=== PATIENT | female | born 1945 | race Caucasian/White ===

== ENCOUNTER → 2018-08-25 12:52 | Outpatient (CLI) | payer MEDICARE, OTHER, SELFPAY ==
--- NOTE | 2018-08-25 | DI.RAD.S_ITS ---
This blank DEXA report has been sent in error by the PACS system. The correct and complete report will be forthcoming in 1-2 days. Thank you for your patience and understanding. Dictated by: Abdi Stahl M.D. on 08/25/2018 at 14:18 Approved by: Abdi Stahl M.D. on 08/25/2018 at 14:18
== END ==
PROVIDERS: PCP Family Medicine; Visit Provider Family Medicine
DX: M85.851 Other specified disorders of bone density and structure, right thigh (principal); Z78.0 Asymptomatic menopausal state; E07.9 Disorder of thyroid, unspecified
CPT/HCPCS: 77080

== ENCOUNTER → 2021-01-18 13:23 | Outpatient (CLI) | payer MEDICARE, OTHER, SELFPAY | PROVIDERS: PCP Student in an Organized Health Care Education/Training Program; Referring Provider Student in an Organized Health Care Education/Training Program; Visit Provider Student in an Organized Health Care Education/Training Program | DX: Z78.0 Asymptomatic menopausal state (principal) | CPT/HCPCS: 77080 ==

== ENCOUNTER 2021-04-08 09:36 | Inpatient (IN) | payer MEDICARE, OTHER, SELFPAY ==
[2021-04-08] VITALS (36 sets, daily range): BP systolic 98–144; BP diastolic 53–91; PULSE 75–291; RESP 18–35; TEMP 36.1–37.2; O2SAT 65–97; BMI 37.3
--- NOTE | 2021-04-08 10:16 | DI.RAD.S_ITS ---
PROCEDURE: XR CHEST 1V INDICATIONS: shortness of breath TECHNIQUE: One view of the chest was acquired. COMPARISON: [facility] - [place], CR, CHEST 2VW, 03/31/2010, 9:35. FINDINGS: Surgical changes and devices: None. Lungs and pleura: Multifocal interstitial type infiltrates are seen. Low lung volumes are noted. This causes a crowded appearance to the lung markings and limits evaluation. No pleural effusions or pneumothorax. Mediastinum: The aorta is prominent and tortuous. Heart size is mildly to moderately enlarged. Bones and chest wall: No suspicious bony lesions. Age-appropriate bony degenerative changes are seen. Overlying soft tissues appear unremarkable. IMPRESSION: Multifocal interstitial type infiltrates are seen. There is strong suspicion for COVID pneumonia. Please correlate with patient history and laboratory results. However, differential diagnosis would include pulmonary edema with CHF in this patient with [id number] cardiomegaly. Dictated by: Paco Cha M.D. on 04/08/2021 at 10:21 Approved by: Paco Cha M.D. on 04/08/2021 at 10:22
--- NOTE | 2021-04-08 10:25 | ED_ITS ---
HPI - SOB/Dyspnea General Chief Complaint: Upper Respiratory Symptoms Stated Complaint: POSSIBLE COVID,HAVING SYMPTOMS Time Seen by Provider: 04/08/21 10:19 Source: patient Mode of arrival: Wheelchair Limitations: no limitations History of Present Illness HPI Narrative: This is a 75-year-old female who is brought in for COVID symptoms. Patient has had symptoms for a week. She has felt generally unwell. She had 1 fever. She has had some nasal congestion and she has had shortness of breath particularly with cough but also significantly with exertion. Patient denies any chest pain. She denies any nausea or vomiting. No diarrhea constipation. No swelling in her extremities. Patient is not vaccinated. 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 Patient is on medication for blood pressure, levothyroxine and uses inhalers. She denies any allergies to medications. Related Data Home Medications Medication Instructions Recorded Confirmed Alendronate Sodium (FOSAMAX) 70 mg PO Q7D #0 06/10/08 Atorvastatin Calcium (Lipitor) 40 mg PO Q DAY #0 06/10/08 CALCIUM CARBONATE/VITAMIN D3 600 mg PO #0 06/10/08 (Oyster Shell Calcium-Vit D Tab) Cyclobenzaprine Hydrochloride 10 mg PO PRN #0 06/10/08 (CYCLOBENZAPRINE HCL) ESTRADIOL (Estrace) 1 mg PO #0 06/10/08 FELODIPINE (Felodipine ER) 5 mg PO Q DAY #0 06/10/08 FLUTICASONE 50MCG RAY INH- 1 spray INTRANASAL #0 06/10/08 (FLUTICASONE PROPIONATE) HYDROXYZINE PAMOATE (Vistaril) 25 mg PO PRN #0 06/10/08 IPRATROPIUM/ALBUTEROL SULFATE 2 puff INH #0 06/10/08 (Combivent Inhaler) LEVOFLOXACIN (Levaquin) 500 mg PO DAILY UNTIL GONE #0 06/10/08 LEVOTHYROXINE SODIUM (Synthroid) 112 mcg PO Q DAY #0 06/10/08 [FLOXIN] #0 06/10/08 Review of Systems Review of Systems ROS Unobtainable: All systems reviewed & are unremarkable except as noted in HPI and below Patient History Medical History (Updated 04/08/21 @ 10:57 by Sabi Roberts DO) Hypertension Social History Smoking Status: Never smoker Smoking Status: Never smoker alcohol intake frequency: holidays/special occasions only Substance Use Type: does not use Exam Narrative Exam Narrative: GENERAL: Alert and oriented x three, elderly female in moderate distress. HEENT: Head normocephalic, atraumatic, EOMI, pupils reactive, face symmetric, moist mucous membranes NECK: Supple, full range of motion CARDIOVASCULAR: Regular rate and rhythm without murmurs, rubs or gallops. RESPIRATORY: Breath sounds equal bilaterally, no wheezes rales or rhonchi. Positive for tachypnea. No accessory muscle use. Speaks in 5-6 word sentences. ABDOMEN: Soft, nontender. Normoactive bowel sounds all 4 quadrants. No guarding or rebound, rigidity, no mass : No CVA tenderness EXTREMITIES: Normal range of motion, no clubbing or edema bilateral lower extremities. Neurovascularly intact NEUROLOGICAL: Cranial nerves II through XII grossly intact. Moving all extremities SKIN: Warm, dry, no petechiae, no rashes or lesions. Initial Vital Signs Initial Vital Signs: Vital Signs Temperature 98.9 F 04/08/21 09:40 Pulse Rate 93 H 04/08/21 09:40 Respiratory Rate 26 H 04/08/21 09:40 Blood Pressure 130/69 04/08/21 09:40 Pulse Oximetry 83 L 04/08/21 09:40 Course Orders Ordered: ED Orders 04/08/21 10:30 Blood Culture Stat C-Reactive Protein Quant Stat Complete Blood Count AUTO DIFF Stat Comprehensive Metabolic Panel Stat Ferritin Stat Lactate (Lactic Acid) Stat Lactate Dehydrogenase Stat NT-proBNP (BNP-Adult 18+) Stat Procalcitonin Stat Troponin & CK Cardiac Panel Stat 04/08/21 10:35 COVID19 - ADMIT (FEATHER EDGER swab/PCR) Routine 04/08/21 11:10 High flow/High humidity nasal STAT 04/08/21 11:35 D Dimer Stat 04/08/21 11:43 ABG [Arterial Blood Gas] Stat Acetaminophen (Acetaminophen 325 Mg Tablet) 650 mg PO Q6HR PRN PRN Reason: Fever Last Admin: 04/08/21 15:48 Dose: 650 mg Documented by: CWHITE Albuterol/Ipratropium (Albuterol/Ipratropium 3 Ml Ampul) 3 ml INH [id number] [facility] Atorvastatin Calcium (Atorvastatin 20 Mg Tablet) 40 mg PO DAILY [facility] Last Admin: 04/08/21 15:47 Dose: 40 mg Documented by: NAZARIO Cyclobenzaprine HCl (Cyclobenzaprine 10 Mg Tablet) 10 mg PO DAILY PRN PRN Reason: muscle spasms Last Admin: 04/08/21 15:48 Dose: 10 mg Documented by: NAZARIO Dexamethasone (Dexamethasone 10 Mg/Ml Vial) 6 mg IV DAILY [facility] Docusate Sodium (Docusate 100 Mg Capsule) 100 mg PO BID PRN PRN Reason: constipation Last Admin: 04/08/21 15:48 Dose: 100 mg Documented by: NAZARIO Enoxaparin Sodium (Enoxaparin 30 Mg/0.3 Ml Syringe) 30 mg SUBCUT DAILY [facility] Last Admin: 04/08/21 15:50 Dose: 30 mg Documented by: NAZARIO Sodium Chloride (Normal Saline 0.9%) 1,000 mls @ 125 mls/hr IV CONT [facility] Last Infusion: 04/08/21 14:00 Dose: 0 mls/hr Documented by: Admin: 04/08/21 10:40 Dose: 125 mls/hr Documented by: MARICHUY Potassium Chloride 10 meq/ (Dextrose/Sodium Chloride) 1,005 mls @ 0 mls/hr IV CONT [facility] Last Admin: 04/08/21 15:46 Dose: 75 mls/hr Documented by: NAZARIO Cosigned by: SALINAS Ceftriaxone Sodium 2,000 mg/ (Sodium Chloride) 100 mls @ 200 mls/hr IV Q24H [facility] Azithromycin 500 mg/ Dextrose 250 mls @ 250 mls/hr IV Q24H [facility] Remdesivir 100 mg/ Sodium (Chloride) 250 mls @ 250 mls/hr IV DAILY [facility] Stop: 04/16/21 15:58 Levothyroxine Sodium (Levothyroxine 137 Mcg Tablet) 137 mcg PO 0600 [facility] Naloxone HCl (Naloxone 0.4 Mg/Ml Vial) 0.2 mg IV Q2MIN PRN PRN Reason: Opiate Reversal Felodipine Er 5 Mg 5 mg PO DAILY [facility] Last Admin: 04/08/21 15:47 Dose: Not Given Documented by: NAZARIO Discontinued Medications Dexamethasone (Dexamethasone 10 Mg/Ml Vial) 6 mg IV NOW ONE Stop: 04/08/21 10:48 Last Admin: 04/08/21 11:30 Dose: 6 mg Documented by: MARICHUY Remdesivir 200 mg/ Sodium (Chloride) 250 mls @ 250 mls/hr IV NOW ONE Stop: 04/08/21 10:48 Last Infusion: 04/08/21 12:32 Dose: 0 mls/hr Documented by: Admin: 04/08/21 11:29 Dose: 250 mls/hr Documented by: MARICHUY Ceftriaxone Sodium 2,000 mg/ (Sodium Chloride) 100 mls @ 200 mls/hr IV NOW ONE Stop: 04/08/21 12:07 Last Infusion: 04/08/21 13:06 Dose: 0 mls/hr Documented by: Admin: 04/08/21 12:26 Dose: 200 mls/hr Documented by: MARICHUY Azithromycin 500 mg/ Dextrose 250 mls @ 250 mls/hr IV NOW ONE Stop: 04/08/21 12:08 Last Infusion: 04/08/21 14:43 Dose: 0 mls/hr Documented by: Admin: 04/08/21 13:06 Dose: 250 mls/hr Documented by: MARICHUY Tocilizumab (Tocilizumab 200 Mg/10 Ml Vial) 664 mg IV NOW ONE Stop: 04/08/21 14:26 Consultations Consultation #1: Dr. Shaver, accepts for admission. Patient current POLST status relayed. Patient was covered with antibiotics secondary to elevated procalcitonin although patient is very classically COVID positive pneumonia. Currently on high-flow oxygen. Vital Signs Vital signs: Vital Signs - 8 hr 04/08/21 11:30 04/08/21 11:31 04/08/21 12:00 Pulse Rate 80 80 86 Respiratory Rate 24 Blood Pressure 132/63 124/58 L Pulse Oximetry 88 L 92 04/08/21 12:30 Pulse Rate 84 Respiratory Rate Blood Pressure 125/60 Pulse Oximetry 93 MDM - SOB/Dyspnea Lab Data Result diagrams: 04/08/21 10:30 04/08/21 10:30 Labs: Lab Results 04/08/21 04/08/21 04/08/21 Range/Units 10:02 10:30 10:30 WBC 12.9 H (4.5-11.0) X10^3/uL RBC 4.38 (4.0-5.2) X10^6/uL Hgb 12.9 (12.0-16.0) g/dL Hct 37.8 (36-46) % MCV 86.3 (80-100) fL MCH 29.6 (26-34) PG MCHC 34.2 (30-36) % RDW 13.9 (11.6-14.8) % Plt Count 251 (150-400) X10^3/uL Neut % (Auto) 82.8 H (50-75) % Lymph % (Auto) 10.0 L (25-40) % [place] % (Auto) 6.8 (3-14) % Eos % (Auto) 0.0 L (2-4) % Baso % (Auto) 0.4 (0-2) % Neut # (Auto) 39778 H (5019-7597) /uL Lymph # (Auto) 1300 (6632-0129) /uL [place] # (Auto) 900 (0-900) /uL Eos # (Auto) 0 (0-450) /uL Baso # (Auto) 100 (0-100) /uL D-Dimer (<230) ng/mL ABG pH (7.35-7.45) ABG pCO2 (35-45) mmHg ABG pO2 (80-100) mmHg ABG HCO3 (22-26) mmol/L ABG Total CO2 (21-31) mmol/L ABG O2 Saturation (95-100) % ABG Base Excess (-2-2) mmol/L FiO2 Sodium 132 L (137-145) mmol/L Potassium 3.6 (3.4-5.1) mmol/L Chloride 100 (98-107) mmol/L Carbon Dioxide 22 (22-32) mmol/L BUN 19 H (7-17) mg/dL Creatinine 0.93 (0.52-1.04) mg/dL Estimated GFR 58.5 L (>60) mL/min BUN/Creatinine Ratio 20.4 (6-22) Glucose 168 H (80-110) mg/dL Lactate (0.7-2.1) mmol/L Calcium 8.7 (8.4-10.2) mg/dL Ferritin (11-264) ng/mL Total Bilirubin 0.9 (0.2-1.3) mg/dL AST 58 H (14-36) IU/L ALT 27 (<35) IU/L Alkaline Phosphatase 96 (38-126) U/L Lactate Dehydrogenase (313-618) U/L Total Creatine Kinase (30-135) U/L CK-MB (CK-2) CK-MB (CK-2) Rel Index Troponin I (0.01-0.034) ng/mL C-Reactive Protein (<1.0) mg/dL NT-Pro-B Natriuret Pep (<450) pg/mL Total Protein 7.4 (6.3-8.2) g/dL Albumin 3.7 (3.5-5.0) g/dL Globulin 3.7 (1.7-4.1) g/dL Albumin/Globulin Ratio 1.0 (1.0-2.8) Procalcitonin (<0.5) ng/mL SARS-CoV-2 (PCR) Positive H (Negative) Influenza A (RT-PCR) (NEGATIVE) Influenza B (RT-PCR) (NEGATIVE) 04/08/21 04/08/21 04/08/21 Range/Units 10:30 10:30 10:30 WBC (4.5-11.0) X10^3/uL RBC (4.0-5.2) X10^6/uL Hgb (12.0-16.0) g/dL Hct (36-46) % MCV (80-100) fL MCH (26-34) PG MCHC (30-36) % RDW (11.6-14.8) % Plt Count (150-400) X10^3/uL Neut % (Auto) (50-75) % Lymph % (Auto) (25-40) % Apache % (Auto) (3-14) % Eos % (Auto) (2-4) % Baso % (Auto) (0-2) % Neut # (Auto) (9592-2915) /uL Lymph # (Auto) (8062-9354) /uL Apache # (Auto) (0-900) /uL Eos # (Auto) (0-450) /uL Baso # (Auto) (0-100) /uL D-Dimer (<230) ng/mL ABG pH (7.35-7.45) ABG pCO2 (35-45) mmHg ABG pO2 (80-100) mmHg ABG HCO3 (22-26) mmol/L ABG Total CO2 (21-31) mmol/L ABG O2 Saturation (95-100) % ABG Base Excess (-2-2) mmol/L FiO2 Sodium (137-145) mmol/L Potassium (3.4-5.1) mmol/L Chloride (98-107) mmol/L Carbon Dioxide (22-32) mmol/L BUN (7-17) mg/dL Creatinine (0.52-1.04) mg/dL Estimated GFR (>60) mL/min BUN/Creatinine Ratio (6-22) Glucose (80-110) mg/dL Lactate 1.4 (0.7-2.1) mmol/L Calcium (8.4-10.2) mg/dL Ferritin 885 H (11-264) ng/mL Total Bilirubin (0.2-1.3) mg/dL AST (14-36) IU/L ALT (<35) IU/L Alkaline Phosphatase (38-126) U/L Lactate Dehydrogenase 1079 H (313-618) U/L Total Creatine Kinase 67 (30-135) U/L CK-MB (CK-2) TNP CK-MB (CK-2) Rel Index TNP Troponin I < 0.012 (0.01-0.034) ng/mL C-Reactive Protein 22.6 H (<1.0) mg/dL NT-Pro-B Natriuret Pep 513 H (<450) pg/mL Total Protein (6.3-8.2) g/dL Albumin (3.5-5.0) g/dL Globulin (1.7-4.1) g/dL Albumin/Globulin Ratio (1.0-2.8) Procalcitonin 0.53 H (<0.5) ng/mL SARS-CoV-2 (PCR) (Negative) Influenza A (RT-PCR) (NEGATIVE) Influenza B (RT-PCR) (NEGATIVE) 04/08/21 04/08/21 04/08/21 Range/Units 10:35 10:35 11:35 WBC (4.5-11.0) X10^3/uL RBC (4.0-5.2) X10^6/uL Hgb (12.0-16.0) g/dL Hct (36-46) % MCV (80-100) fL MCH (26-34) PG MCHC (30-36) % RDW (11.6-14.8) % Plt Count (150-400) X10^3/uL Neut % (Auto) (50-75) % Lymph % (Auto) (25-40) % [place] % (Auto) (3-14) % Eos % (Auto) (2-4) % Baso % (Auto) (0-2) % Neut # (Auto) (3326-4857) /uL Lymph # (Auto) (1149-9724) /uL [place] # (Auto) (0-900) /uL Eos # (Auto) (0-450) /uL Baso # (Auto) (0-100) /uL D-Dimer 783 H (<230) ng/mL ABG pH (7.35-7.45) ABG pCO2 (35-45) mmHg ABG pO2 (80-100) mmHg ABG HCO3 (22-26) mmol/L ABG Total CO2 (21-31) mmol/L ABG O2 Saturation (95-100) % ABG Base Excess (-2-2) mmol/L FiO2 Sodium (137-145) mmol/L Potassium (3.4-5.1) mmol/L Chloride (98-107) mmol/L Carbon Dioxide (22-32) mmol/L BUN (7-17) mg/dL Creatinine (0.52-1.04) mg/dL Estimated GFR (>60) mL/min BUN/Creatinine Ratio (6-22) Glucose (80-110) mg/dL Lactate (0.7-2.1) mmol/L Calcium (8.4-10.2) mg/dL Ferritin (11-264) ng/mL Total Bilirubin (0.2-1.3) mg/dL AST (14-36) IU/L ALT (<35) IU/L Alkaline Phosphatase (38-126) U/L Lactate Dehydrogenase (313-618) U/L Total Creatine Kinase (30-135) U/L CK-MB (CK-2) CK-MB (CK-2) Rel Index Troponin I (0.01-0.034) ng/mL C-Reactive Protein (<1.0) mg/dL NT-Pro-B Natriuret Pep (<450) pg/mL Total Protein (6.3-8.2) g/dL Albumin (3.5-5.0) g/dL Globulin (1.7-4.1) g/dL Albumin/Globulin Ratio (1.0-2.8) Procalcitonin (<0.5) ng/mL SARS-CoV-2 (PCR) Positive H (Negative) Influenza A (RT-PCR) Flu a negative (NEGATIVE) Influenza B (RT-PCR) Flu b negative (NEGATIVE) 04/08/21 Range/Units 11:43 WBC (4.5-11.0) X10^3/uL RBC (4.0-5.2) X10^6/uL Hgb (12.0-16.0) g/dL Hct (36-46) % MCV (80-100) fL MCH (26-34) PG MCHC (30-36) % RDW (11.6-14.8) % Plt Count (150-400) X10^3/uL Neut % (Auto) (50-75) % Lymph % (Auto) (25-40) % [place] % (Auto) (3-14) % Eos % (Auto) (2-4) % Baso % (Auto) (0-2) % Neut # (Auto) (2070-7645) /uL Lymph # (Auto) (7868-1834) /uL [place] # (Auto) (0-900) /uL Eos # (Auto) (0-450) /uL Baso # (Auto) (0-100) /uL D-Dimer (<230) ng/mL ABG pH 7.50 H (7.35-7.45) ABG pCO2 27.7 L (35-45) mmHg ABG pO2 60 L (80-100) mmHg ABG HCO3 22 (22-26) mmol/L ABG Total CO2 22 (21-31) mmol/L ABG O2 Saturation 93 L (95-100) % ABG Base Excess -2.0 (-2-2) mmol/L FiO2 80 Sodium (137-145) mmol/L Potassium (3.4-5.1) mmol/L Chloride (98-107) mmol/L Carbon Dioxide (22-32) mmol/L BUN (7-17) mg/dL Creatinine (0.52-1.04) mg/dL Estimated GFR (>60) mL/min BUN/Creatinine Ratio (6-22) Glucose (80-110) mg/dL Lactate (0.7-2.1) mmol/L Calcium (8.4-10.2) mg/dL Ferritin (11-264) ng/mL Total Bilirubin (0.2-1.3) mg/dL AST (14-36) IU/L ALT (<35) IU/L Alkaline Phosphatase (38-126) U/L Lactate Dehydrogenase (313-618) U/L Total Creatine Kinase (30-135) U/L CK-MB (CK-2) CK-MB (CK-2) Rel Index Troponin I (0.01-0.034) ng/mL C-Reactive Protein (<1.0) mg/dL NT-Pro-B Natriuret Pep (<450) pg/mL Total Protein (6.3-8.2) g/dL Albumin (3.5-5.0) g/dL Globulin (1.7-4.1) g/dL Albumin/Globulin Ratio (1.0-2.8) Procalcitonin (<0.5) ng/mL SARS-CoV-2 (PCR) (Negative) Influenza A (RT-PCR) (NEGATIVE) Influenza B (RT-PCR) (NEGATIVE) Imaging Data Chest x-ray: Radiologist's Impression: Galina Rosado 75 F [address] [id number] ReportSigned Patient: Galina Rosado [facility]#: [id number]: 4Acct:[id number]/Sex: 75 / FDate of Service: 04/08/21Loc: EDAccession Number: [id number] Procedure: XR chest 1V Ordering Provider: Sabi Roberts D.O. PROCEDURE: XR CHEST 1V INDICATIONS: shortness of breath TECHNIQUE: One view of the chest was acquired. COMPARISON: [facility] - [place], CR, CHEST 2VW, 03/31/2010, 9:35. FINDINGS: Surgical changes and devices: None. Lungs and pleura: Multifocal interstitial type infiltrates are seen. Low lung volumes are noted. This causes a crowded appearance to the lung markings and limits evaluation. No pleural effusions or pneumothorax. Mediastinum: The aorta is prominent and tortuous. Heart size is mildly to moderately enlarged. Bones and chest wall: No suspicious bony lesions. Age-appropriate bony degenerative changes are seen. Overlying soft tissues appear unremarkable. IMPRESSION: Multifocal interstitial type infiltrates are seen. There is strong suspicion for COVID pneumonia. Please correlate with patient history and laboratory results. However, differential diagnosis would include pulmonary edema with CHF in this patient with [id number] cardiomegaly. Dictated by: Paco Cha M.D. on 04/08/2021 at 10:21 Approved by: Paco Cha M.D. on 04/08/2021 at 10:22 ECG Data Attestation: I personally reviewed and interpreted this ECG as follows: Prior ECG tracings: available for review Interpretation: Sinus rhythm rate 86, MS 136 QRS is 74 and QTC of 457. No acute ST elevation or depression. MDM Narrative Medical decision making narrative: This is a 75-year-old unvaccinated elderly f emale history of hypertension, dyslipidemia and hypothyroidism who comes in with complaint of feeling unwell and shortness of breath who is quite hypoxic on initial arrival in the mid to low 80s. Patient was ultimately placed on high- flow O2 sats have been 90-93 on heated high flow at 40L/min. Patient's chest x- ray and COVID swab are both positive in suspicious for COVID pneumonia. Patient has got a slight white count. Chemistries showed elevated dehydrogenase and mildly elevated BNP with negative troponin. Patient's procalcitonin is elevated at 0.53. Discussed with the patient's admitting service Dr. Shaver and will cover with antibiotics initially. Blood cultures are pending. Patient and I discussed her code status at this time she is full code but did express some reservations about intubation. She does state that if she is unable to speak for herself on her has been is her designated decisionmaker. Patient accepted by Dr. Shaver for admission. Critical Care Time Critical Care Time Critical Care Time: Yes Total Critical Care Time: 35 Attestation: The high probability of a clinically significant, sudden or life threatening deterioration of the [cardiac, pulm] system(s) required my full and direct attention, intervention and personal management. The aggregate critical care time was [35] minutes. This time is in addition to time spent performing reported procedures but includes the following: [x] Data Review and interpretation [x] Patient assessment and monitoring of vital signs [x] Documentation [x] Medication orders and management Discharge Plan Departure Patient Disposition: Admitted As Inpatient Clinical Impression: COVID-19 virus infection, Acute respiratory failure with hypoxia Admit Date/Time: 04/08/21 12:51 Admit Provider: Elin Shaver
[2021-04-08] MEDS: SODIUM CHLORIDE 0.9% 1,000 ML 125 ML IV (10:40)
[2021-04-08 10:43] LABS: COVID19 -Nasal RAPID POSITIVE (Negative)
[2021-04-08 10:57] LABS: Add Manual Diff / Slide Review NO; Basophils Absolute Auto 100 /uL (0-100); Basophils Percent Auto 0.4 % (0-2); Eosinophils Absolute Auto 0 /uL (0-450); Hematocrit 37.8 % (36-46); Hemoglobin 12.9 g/dL (12.0-16.0); Lymphocytes Absolute Auto 1300 /uL (1100-4500); Mean Corpuscular HGB Conc 34.2 % (30-36); Mean Corpuscular Hemoglobin 29.6 PG (26-34); Mean Corpuscular Volume 86.3 fL (80-100); Monocytes Absolute Auto 900 /uL (0-900); Monocytes Percent Auto 6.8 % (3-14); Neutrophils Absolute Auto 10700 /uL (1500-7000); Neutrophils Percent Auto 82.8 % (50-75); Platelet Count 251 X10^3/uL (150-400); Red Blood Cell Count 4.38 X10^6/uL (4.0-5.2); Red Cell Distribution Width 13.9 % (11.6-14.8); White Blood Cell Count 12.9 X10^3/uL (4.5-11.0)
--- NOTE | 2021-04-08 11:13 | RT ---
Called to ER 6 pt saturating in the low 80's on 6LNC, placed on [facility] 40L@80% pt saturating 91%
[2021-04-08 11:14] LABS: Lactate (Lactic Acid) 1.4 mmol/L (0.7-2.1)
[2021-04-08 11:15] LABS: Alanine Aminotransferase 27 IU/L (<35); Albumin 3.7 g/dL (3.5-5.0); Alkaline Phosphatase 96 U/L (38-126); Aspartate Aminotransferase 58 IU/L (14-36); BUN Creatinine Ratio 20.4 (6-22); Bilirubin Total 0.9 mg/dL (0.2-1.3); Blood Urea Nitrogen 19 mg/dL (7-17); Calcium 8.7 mg/dL (8.4-10.2); Carbon Dioxide 22 mmol/L (22-32); Chloride 100 mmol/L (98-107); Estimated Glomerular Filt Rate 58.5 mL/min (>60); Globulin 3.7 g/dL (1.7-4.1); Glucose 168 mg/dL (80-110); HEMOLYSIS < 15 (0-50); Potassium 3.6 mmol/L (3.4-5.1); Sodium 132 mmol/L (137-145); Total Protein 7.4 g/dL (6.3-8.2)
[2021-04-08 11:16] LABS: Lactate Dehydrogenase 1079 U/L (313-618)
[2021-04-08 11:19] LABS: Creatine Kinase 67 U/L (30-135)
[2021-04-08 11:25] LABS: NT-proBNP (BNP-Adult 18+) 513 pg/mL (<450)
[2021-04-08 11:27] LABS: Troponin I < 0.012 ng/mL (0.01-0.034)
[2021-04-08] MEDS: REMDESIVIR 200 MG in SODIUM CHLORIDE 0.9% 210 ML 250 ML IV (11:29)
[2021-04-08] MEDS: DEXAMETHASONE 10 MG/ML VIAL 6 MG IV (11:30)
[2021-04-08 11:32] LABS: Procalcitonin 0.53 ng/mL (<0.5)
[2021-04-08 11:37] LABS: COVID19 - ADMIT (NP swab/PCR) POSITIVE (Negative)
[2021-04-08 11:43] LABS: C-Reactive Protein Quant 22.6 mg/dL (<1.0)
[2021-04-08 11:50] LABS: Ferritin 885 ng/mL (11-264)
[2021-04-08] MEDS: cefTRIAXone 2,000 MG in SODIUM CHLORIDE 0.9% 100 ML 200 ML IV (12:26)
[2021-04-08 12:55] LABS: Fractionated Inspired Oxygen 80; HCO3 ABG 22 mmol/L (22-26); Oxygen Saturation ABG 93 % (95-100); PCO2 ABG 27.7 mmHg (35-45); PO2 ABG 60 mmHg (80-100); TCO2 ABG 22 mmol/L (21-31)
[2021-04-08] MEDS: AZITHROMYCIN 500 MG in DEXTROSE 5% IN WATER 250 ML IV (13:06)
--- NOTE | 2021-04-08 13:18 | PC.NURSE ---
report given to bere bolaños [id number]
--- NOTE | 2021-04-08 13:36 | P.HP_ITS ---
History of Present Illness History of Present Illness Date Patient Seen: 04/08/21 Time Patient Seen: 13:36 Chief complaint: POSSIBLE COVID,HAVING SYMPTOMS Narrative: This 75-year-old female presents from the ED with COVID pneumonia. She is unvaccinated against COVID. Reports that she has been having dyspnea with cough and with any exertion for approximately 1 week. Has been feeling generally unwell. Reported 1 fever. No change in appetite. No nausea or v omiting. No diarrhea or constipation. Denies swelling. Her daughter was recently visiting from [place], she also had COVID as does her .. 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 Vital signs upon admission to the ED included a temperature of 98.9?, pulse 93, respirations 26, O2 saturation 83%, blood pressure 130/69. Patient was started on high-flow oxygen at 40 liters/minute and O2 saturation improved to 90%. She was given a normal saline bolus, dexamethasone 6 mg IV x1, remdesivir 20 mg IV x1 and Rocephin and azithromycin secondary to elevated procalcitonin. Other abnormal lab values included a markedly elevated ferritin at 885, LDH at 1079, and CRP at 22.6. WBC elevated at 12.9 with a left shift. AST 58, BUN 19. Sodium slightly low at 132. Chest x-ray classic for COVID with multifocal interstitial infiltrates and mild to moderate cardiomegaly. Past medical history: Diabetes mellitus type 2 Hypertension Hyperlipidemia Hypothyroidism Asthma Allergies Osteopenia Obesity Past surgical history: Hysterectomy Ovarian cyst removal Right rotator cuff Joint replacement, bilateral thumbs Tonsillectomy Cataract Inner ear surgery Family history: Father: Healthy Mother: Asbestos exposure, leukemia Brother: Congenital heart disease, at Brother: Congenital heart disease Sister: Congenital heart disease, 3 kidneys Son: Premature with some cognition problems Social history: to [place], baby sits young grandchildren daily. Patient History Medical History (Updated 04/08/21 @ 10:57 by Sabi Roberts DO) Hypertension Family & Social History Safety & Behavioral: Feels Safe in Current Yes Environment Tobacco & Substance use: Smoking Status Never smoker alcohol intake frequency holiday/special occasion Substance Use Type does not use Meds Home Medications and Allergies Home Medications Medication Instructions Recorded Confirmed Type Alendronate Sodium (FOSAMAX) 70 mg PO Q7D #0 06/10/08 History Atorvastatin Calcium (Lipitor) 40 mg PO Q DAY #0 06/10/08 History CALCIUM CARBONATE/VITAMIN D3 600 mg PO #0 06/10/08 History (Oyster Shell Calcium-Vit D Tab) Cyclobenzaprine Hydrochloride 10 mg PO PRN #0 06/10/08 History (CYCLOBENZAPRINE HCL) ESTRADIOL (Estrace) 1 mg PO #0 06/10/08 History FELODIPINE (Felodipine ER) 5 mg PO Q DAY #0 06/10/08 History FLUTICASONE 50MCG RAY INH- 1 spray INTRANASAL #0 06/10/08 History (FLUTICASONE PROPIONATE) HYDROXYZINE PAMOATE (Vistaril) 25 mg PO PRN #0 06/10/08 History IPRATROPIUM/ALBUTEROL SULFATE 2 puff INH #0 06/10/08 History (Combivent Inhaler) LEVOFLOXACIN (Levaquin) 500 mg PO DAILY UNTIL GONE #0 06/10/08 History LEVOTHYROXINE SODIUM (Synthroid) 112 mcg PO Q DAY #0 06/10/08 History [FLOXIN] #0 06/10/08 History Review of Systems Review of Systems Narrative: See HPI. Exam Vital Signs (past 8 hours): - 04/08/21 09:40 04/08/21 10:30 04/08/21 11:00 Temperature 98.9 F Pulse Rate 93 H 291 H 83 Respiratory Rate 26 H 25 H 25 H Blood Pressure 130/69 140/66 144/67 H Pulse Oximetry 83 L 87 L 90 L 04/08/21 11:10 04/08/21 11:11 04/08/21 11:30 Temperature Pulse Rate 86 86 80 Respiratory Rate 20 20 24 Blood Pressure 130/60 132/63 Pulse Oximetry 91 91 88 L 04/08/21 11:31 04/08/21 12:00 04/08/21 12:30 Temperature Pulse Rate 80 86 84 Respiratory Rate Blood Pressure 124/58 L 125/60 Pulse Oximetry 92 93 04/08/21 13:00 Temperature Pulse Rate 84 Respiratory Rate Blood Pressure 119/57 L Pulse Oximetry 90 L Fraction of Inspired Oxygen 80 Oxygen Delivery Method High Flow Nasal Cannula Oxygen Flow Rate 40 Narrative Exam Narrative: GENERAL: Alert and oriented, on high flow oxygn, no acute distress. HEENT: Head normocephalic/atraumatic. LUNGS: Diminished inspiratory effort, no audble wheezes, rhonichi, or rales. CV: Normal S1 and S2 with regular rate and rhythm, no audible murmurs, rubs or gallops. ABDOMEN: Soft, non-tender, non-distended, no organomegaly. Positive bowel sounds. EXTREMITIES: No clubbing, cyanosis, or edema. NEURO: Cranial nerves II through XII grossly intact, no focal deficits. PSYCH: Alert and oriented x 3. SKIN: No concerning lesions. Objective Labs Result Diagrams: 04/08/21 10:30 04/08/21 10:30 Labs: Laboratory Results - last 24 hr 04/08/21 04/08/21 04/08/21 10:02 10:30 10:30 WBC 12.9 H RBC 4.38 Hgb 12.9 Hct 37.8 MCV 86.3 MCH 29.6 MCHC 34.2 RDW 13.9 Plt Count 251 Neut % (Auto) 82.8 H Lymph % (Auto) 10.0 L [place] % (Auto) 6.8 Eos % (Auto) 0.0 L Baso % (Auto) 0.4 Neut # (Auto) 62189 H Lymph # (Auto) 1300 [place] # (Auto) 900 Eos # (Auto) 0 Baso # (Auto) 100 ABG pH ABG pCO2 ABG pO2 ABG HCO3 ABG Total CO2 ABG O2 Saturation ABG Base Excess FiO2 Sodium 132 L Potassium 3.6 Chloride 100 Carbon Dioxide 22 BUN 19 H Creatinine 0.93 Estimated GFR 58.5 L BUN/Creatinine Ratio 20.4 Glucose 168 H Lactate Calcium 8.7 Ferritin Total Bilirubin 0.9 AST 58 H ALT 27 Alkaline Phosphatase 96 Lactate Dehydrogenase Total Creatine Kinase CK-MB (CK-2) CK-MB (CK-2) Rel Index Troponin I C-Reactive Protein NT-Pro-B Natriuret Pep Total Protein 7.4 Albumin 3.7 Globulin 3.7 Albumin/Globulin Ratio 1.0 Procalcitonin SARS-CoV-2 (PCR) Positive H 04/08/21 04/08/21 04/08/21 10:30 10:30 10:30 WBC RBC Hgb Hct MCV MCH MCHC RDW Plt Count Neut % (Auto) Lymph % (Auto) [place] % (Auto) Eos % (Auto) Baso % (Auto) Neut # (Auto) Lymph # (Auto) [place] # (Auto) Eos # (Auto) Baso # (Auto) ABG pH ABG pCO2 ABG pO2 ABG HCO3 ABG Total CO2 ABG O2 Saturation ABG Base Excess FiO2 Sodium Potassium Chloride Carbon Dioxide BUN Creatinine Estimated GFR BUN/Creatinine Ratio Glucose Lactate 1.4 Calcium Ferritin 885 H Total Bilirubin AST ALT Alkaline Phosphatase Lactate Dehydrogenase 1079 H Total Creatine Kinase 67 CK-MB (CK-2) TNP CK-MB (CK-2) Rel Index TNP Troponin I < 0.012 C-Reactive Protein 22.6 H NT-Pro-B Natriuret Pep 513 H Total Protein Albumin Globulin Albumin/Globulin Ratio Procalcitonin 0.53 H SARS-CoV-2 (PCR) 04/08/21 04/08/21 10:35 11:43 WBC RBC Hgb Hct MCV MCH MCHC RDW Plt Count Neut % (Auto) Lymph % (Auto) [place] % (Auto) Eos % (Auto) Baso % (Auto) Neut # (Auto) Lymph # (Auto) [place] # (Auto) Eos # (Auto) Baso # (Auto) ABG pH 7.50 H ABG pCO2 27.7 L ABG pO2 60 L ABG HCO3 22 ABG Total CO2 22 ABG O2 Saturation 93 L ABG Base Excess -2.0 FiO2 80 Sodium Potassium Chloride Carbon Dioxide BUN Creatinine Estimated GFR BUN/Creatinine Ratio Glucose Lactate Calcium Ferritin Total Bilirubin AST ALT Alkaline Phosphatase Lactate Dehydrogenase Total Creatine Kinase CK-MB (CK-2) CK-MB (CK-2) Rel Index Troponin I C-Reactive Protein NT-Pro-B Natriuret Pep Total Protein Albumin Globulin Albumin/Globulin Ratio Procalcitonin SARS-CoV-2 (PCR) Positive H Assessment & Plan Assessment and plan (1) COVID-19 virus infection: Status: Acute (2) Acute respiratory failure with hypoxia: Status: Acute Assessment & Plan narrative: 1. COVID pneumonia with acute hypoxemic respiratory failure, new Plan: High-flow oxygen. Will continue dexamethasone 6 mg p.o. q.day and remdesivir 100 mg IV qd. Plan will be to continue remdesivir x 4 days and up to 9 days if not clinically improving. As patient is less than 24 hours from admission and requiring high flow oxygen support, will also give baricitinib 4 mg PO qd x 10 days or until discharge. Will continue with supportive therapy including Tylenol, gentle IV fluid rehydration, Combivent MDI, and proning. Goal will be for at least 6-8 hours of prone positioning daily. Goal maintenance oxygenation will be > 90%. RT consulting. 2. Possible secondary bacterial community acquired pneumonia based on elevated procalcitonin Plan: Continue Rocephin and azithromycin daily. 3. Non insulin-dependent diabetes mellitus type 2, chronic Plan: Diabetic diet. 4. Hypertension, chronic Plan: Continue home felodipine ER 5 mg PO qd. 5. Hyperlipidemia, chronic Plan: Continue atorvastatin 40 mg p.o. q.h.s. 6. Hypothyroidism, chronic Plan: Continue levothyroxine 137 micro g p.o. q.a.m. 7. Asthma, mild, intermittent Plan: Patient normally has an albuterol inhaler, will switch to combivent MDI in the hospital due to respiratory distress. Dexamethasone as mentioned above. 8. Osteopenia, chronic Plan: Holding alendronate and calcium. 9. Obesity, chronic Plan: Patient is at increased risk for poor healing due to deconditioning, plan as above. PT/OT, nutrition consult. DVT prophylaxis: Lovenox FEN: D5 half-normal saline + 20 mEq of KCl at 75 cc/hour, diabetic diet COVID: Positive Code: Full Disposition: Anticipate four nights, possibly longer.
[2021-04-08 14:19] LABS: D Dimer 783 ng/mL (<230)
--- NOTE | 2021-04-08 14:41 | RT ---
Pt transported from ED to ICU, ambu bag at head of bed NRB 15L , at ICU pt resumed HHFNC 40L@80% saturating 90%, pt tolerated well
--- NOTE | 2021-04-08 15:15 | PC.ADMIT ---
[address] Admission Note: Pt arrived from ER via stretcher, able to stand and pivot to bed. 15L NRB and RT assist to HHFNC @ 40L @ 80 % Fio2 SOB and increased WOB with transfer. BSC to void. Side Laying. BA active and education about importance of proning.I don't have COIVD. Pt appears alert and ooriented, but denial remains about COVID. Unvaccinated. Reviewed policies and POC. Pt would like to have meal. Currently side laying with Spo2 93% The patient,Galina Rosado,75 y/o, was given written information regarding hospital policies, unit procedures and contact persons. Patient's smoking status: Never smoker. Vital Signs - 8 hr 04/08/21 09:40 04/08/21 10:30 04/08/21 11:00 Temperature 98.9 F Pulse Rate 93 H 291 H 83 Respiratory Rate 26 H 25 H 25 H Blood Pressure 130/69 140/66 144/67 H Pulse Oximetry 83 L 87 L 90 L 04/08/21 11:10 04/08/21 11:11 04/08/21 11:30 Temperature Pulse Rate 86 86 80 Respiratory Rate 20 20 24 Blood Pressure 130/60 132/63 Pulse Oximetry 91 91 88 L 04/08/21 11:31 04/08/21 12:00 04/08/21 12:30 Temperature Pulse Rate 80 86 84 Respiratory Rate Blood Pressure 124/58 L 125/60 Pulse Oximetry 92 93 04/08/21 13:00 04/08/21 13:30 04/08/21 14:41 Temperature Pulse Rate 84 86 83 Respiratory Rate 24 Blood Pressure 119/57 L 121/58 L Pulse Oximetry 90 L 89 L 90 L
[2021-04-08] MEDS: POTASSIUM CHLORIDE IV (15:46)
[2021-04-08] MEDS: DEXTROSE IV (15:46)
[2021-04-08] MEDS: NS IV (15:46)
[2021-04-08] MEDS: ATORVASTATIN 20 MG TABLET 40 MG PO (15:47)
[2021-04-08] MEDS: DOCUSATE 100 MG CAPSULE PO (15:48)
[2021-04-08] MEDS: ACETAMINOPHEN 325 MG TABLET 650 MG PO (15:48)
[2021-04-08] MEDS: CYCLOBENZAPRINE 10 MG TABLET PO (15:48)
[2021-04-08] MEDS: ENOXAPARIN 30 MG/0.3 ML SYRINGE SUBCUT (15:50)
[2021-04-08 15:59] LABS: Influenza A - CEPHEID Flu A NEGATIVE (NEGATIVE); Influenza B - CEPHEID Flu B NEGATIVE (NEGATIVE)
[2021-04-08] MEDS: BARICITINIB 2 MG TABLET 4 MG PO (17:00)
[2021-04-09] VITALS (30 sets, daily range): BP systolic 97–130; BP diastolic 54–96; PULSE 69–87; RESP 0–34; TEMP 30.8–36.6; O2SAT 85–96
--- NOTE | 2021-04-09 02:32 | DI.RAD.S_ITS ---
PROCEDURE: XR CHEST FOR PICC 1V INDICATIONS: Picc line TECHNIQUE: One view of the chest was acquired. COMPARISON: [facility] [place], [place], CHEST 2VW, 03/31/2010, 9:35. [facility], CR, XR CHEST 1V, 04/08/2021, 11:03. FINDINGS: Surgical changes and devices: There is a left-sided PICC line seen. The tip projects over the mid mediastinum superiorly, likely overlying the inferior-most left brachiocephalic vein. Lungs and pleura: Bilateral interstitial infiltrates are seen, which are worst within the right mid lung. Low lung volumes are noted. This causes a crowded appearance to the lung markings and limits evaluation. No large pneumothorax or large pleural effusions are seen. Mediastinum: Mediastinal contours appear normal. Heart size is mildly to moderately enlarged. Atherosclerotic calcification of the aortic arch is noted. Bones and chest wall: No suspicious bony lesions. Age-appropriate bony degenerative changes are seen. Overlying soft tissues appear unremarkable. IMPRESSION: The tip of the PICC line projects overlying the left brachiocephalic vein inferiorly. Please consider advancement. Continued interstitial infiltrates. COVID pneumonia suspected, although please consider pulmonary edema and CHF in this patient with cardiomegaly. Note: No significant discrepancy from the preliminary report. Dictated by: Paco Cha M.D. on 04/09/2021 at 7:14 Approved by: Paco Cha M.D. on 04/09/2021 at 7:16
[2021-04-09 05:50] LABS: Add Manual Diff / Slide Review NO; Basophils Absolute Auto 100 /uL (0-100); Basophils Percent Auto 0.4 % (0-2); Eosinophils Absolute Auto 0 /uL (0-450); Hematocrit 34.7 % (36-46); Hemoglobin 11.8 g/dL (12.0-16.0); Lymphocytes Absolute Auto 1500 /uL (1100-4500); Lymphocytes Percent Auto 11.3 % (25-40); Mean Corpuscular HGB Conc 33.9 % (30-36); Mean Corpuscular Hemoglobin 29.5 PG (26-34); Monocytes Absolute Auto 900 /uL (0-900); Monocytes Percent Auto 6.5 % (3-14); Neutrophils Absolute Auto 11200 /uL (1500-7000); Neutrophils Percent Auto 81.8 % (50-75); Platelet Count 260 X10^3/uL (150-400); Red Blood Cell Count 3.99 X10^6/uL (4.0-5.2); Red Cell Distribution Width 13.7 % (11.6-14.8); White Blood Cell Count 13.7 X10^3/uL (4.5-11.0)
[2021-04-09 06:02] LABS: INR 1.3 (0.9-1.3); Prothrombin Time 14.4 SECONDS (10.1-12.7)
[2021-04-09 06:08] LABS: Alanine Aminotransferase 33 IU/L (<35); Albumin Globulin Ratio 0.9 (1.0-2.8); Alkaline Phosphatase 76 U/L (38-126); Aspartate Aminotransferase 66 IU/L (14-36); BUN Creatinine Ratio 39.1 (6-22); Bilirubin Total 0.3 mg/dL (0.2-1.3); Blood Urea Nitrogen 25 mg/dL (7-17); Calcium 8.3 mg/dL (8.4-10.2); Carbon Dioxide 23 mmol/L (22-32); Chloride 105 mmol/L (98-107); Creatine Kinase 59 U/L (30-135); Estimated Glomerular Filt Rate > 60.0 mL/min (>60); Globulin 3.5 g/dL (1.7-4.1); Glucose 177 mg/dL (80-110); HEMOLYSIS < 15 (0-50); Lactate Dehydrogenase 1224 U/L (313-618); Potassium 3.8 mmol/L (3.4-5.1); Sodium 132 mmol/L (137-145); Total Protein 6.5 g/dL (6.3-8.2)
[2021-04-09 06:12] LABS: D Dimer 1426 ng/mL (<230); Fibrinogen 514 mg/dL (211-428)
[2021-04-09 06:24] LABS: C-Reactive Protein Quant 19.8 mg/dL (<1.0)
[2021-04-09] MEDS: ALBUTEROL/IPRATROPIUM 3 ML AMPUL INH ×2 (06:25→19:36)
--- NOTE | 2021-04-09 06:50 | PC.NURSE ---
Pt. denies pain, remains on HHFNC with increasing demand and current settings 45L 100%. Lungs sounds with bibasilar crackles with Sats mostly in the 80's. Pt. prone last night for shady. 30 min. then supine and side to side. Currently pt. is proning since 02 demand is increasing. Fernandez with 450 out clear heidi urine. RT has been at bedside numerous times adjusting pt's HHFNC due to desaturation. There is a likelihood of pt. needing either CPAP or BIPAP per RT. Continue to monitor and treat.
--- NOTE | 2021-04-09 08:35 | P.PN_ITS ---
Subjective Subjective Date Patient Seen: 04/09/21 Time Patient Seen: 08:36 Interval history: Patient sedated and in prone positioning during bedside evaluation. Nursing reports that she was having difficulty maintaining her saturations on high-flow oxygen. Had troubled eating with frequent desaturations. Was switched to BiPAP with some improvement and now in the 90s for saturation. Proning also improves her saturations. Exam Vital Signs (past 8 hours): - 04/09/21 01:00 04/09/21 01:10 04/09/21 02:00 Temperature 96.2 F L Pulse Rate 75 78 Respiratory Rate 25 H 24 27 H Blood Pressure 108/58 L 105/58 L Pulse Oximetry 87 L 91 87 L 04/09/21 02:30 04/09/21 03:00 04/09/21 03:31 Temperature Pulse Rate 75 Respiratory Rate 24 21 Blood Pressure 113/64 Pulse Oximetry 88 L 89 L 92 04/09/21 04:00 04/09/21 04:36 04/09/21 05:00 Temperature 96.7 F L Pulse Rate 72 69 Respiratory Rate 26 H 27 H 27 H Blood Pressure 121/70 129/73 Pulse Oximetry 90 L 90 L 88 L 04/09/21 06:00 04/09/21 06:25 04/09/21 06:29 Temperature Pulse Rate 72 75 Respiratory Rate 26 H 25 H 25 H Blood Pressure 130/68 Pulse Oximetry 92 93 93 04/09/21 07:00 Temperature Pulse Rate 72 Respiratory Rate 23 Blood Pressure 110/57 L Pulse Oximetry 86 L Fraction of Inspired Oxygen 100 Oxygen Delivery Method Heated High Flow Oxygen Flow Rate 45 Narrative Exam Narrative: GENERAL: Sedated, on BIPIAP, no acute distress. HEENT: Head normocephalic/atraumatic. LUNGS: Clear to asculatation bilaterally, no audble wheezes, rhonichi, or rales. CV: Normal S1 and S2 with regular rate and rhythm, no audible murmurs, rubs or gallops. ABDOMEN: Soft, non-tender, non-distended, no organomegaly. Positive bowel sounds. EXTREMITIES: No clubbing, cyanosis, or edema. NEURO: Cranial nerves II through XII grossly intact, no focal deficits. PSYCH: Alert and oriented x 3. SKIN: No concerning lesions. Objective Labs Result Diagrams: 04/09/21 05:30 04/09/21 05:30 Labs: Laboratory Results - last 24 hr 04/08/21 04/08/21 04/08/21 10:02 10:30 10:30 WBC 12.9 H RBC 4.38 Hgb 12.9 Hct 37.8 MCV 86.3 MCH 29.6 MCHC 34.2 RDW 13.9 Plt Count 251 Neut % (Auto) 82.8 H Lymph % (Auto) 10.0 L [place] % (Auto) 6.8 Eos % (Auto) 0.0 L Baso % (Auto) 0.4 Neut # (Auto) 43317 H Lymph # (Auto) 1300 [place] # (Auto) 900 Eos # (Auto) 0 Baso # (Auto) 100 PT INR Fibrinogen D-Dimer ABG pH ABG pCO2 ABG pO2 ABG HCO3 ABG Total CO2 ABG O2 Saturation ABG Base Excess FiO2 Sodium 132 L Potassium 3.6 Chloride 100 Carbon Dioxide 22 BUN 19 H Creatinine 0.93 Estimated GFR 58.5 L BUN/Creatinine Ratio 20.4 Glucose 168 H Lactate Calcium 8.7 Ferritin Total Bilirubin 0.9 AST 58 H ALT 27 Alkaline Phosphatase 96 Lactate Dehydrogenase Total Creatine Kinase CK-MB (CK-2) CK-MB (CK-2) Rel Index Troponin I C-Reactive Protein NT-Pro-B Natriuret Pep Total Protein 7.4 Albumin 3.7 Globulin 3.7 Albumin/Globulin Ratio 1.0 Procalcitonin Nasal Screen MRSA (PCR) SARS-CoV-2 (PCR) Positive H Influenza A (RT-PCR) Influenza B (RT-PCR) 04/08/21 04/08/21 04/08/21 10:30 10:30 10:30 WBC RBC Hgb Hct MCV MCH MCHC RDW Plt Count Neut % (Auto) Lymph % (Auto) [place] % (Auto) Eos % (Auto) Baso % (Auto) Neut # (Auto) Lymph # (Auto) [place] # (Auto) Eos # (Auto) Baso # (Auto) PT INR Fibrinogen D-Dimer ABG pH ABG pCO2 ABG pO2 ABG HCO3 ABG Total CO2 ABG O2 Saturation ABG Base Excess FiO2 Sodium Potassium Chloride Carbon Dioxide BUN Creatinine Estimated GFR BUN/Creatinine Ratio Glucose Lactate 1.4 Calcium Ferritin 885 H Total Bilirubin AST ALT Alkaline Phosphatase Lactate Dehydrogenase 1079 H Total Creatine Kinase 67 CK-MB (CK-2) TNP CK-MB (CK-2) Rel Index TNP Troponin I < 0.012 C-Reactive Protein 22.6 H NT-Pro-B Natriuret Pep 513 H Total Protein Albumin Globulin Albumin/Globulin Ratio Procalcitonin 0.53 H Nasal Screen MRSA (PCR) SARS-CoV-2 (PCR) Influenza A (RT-PCR) Influenza B (RT-PCR) 04/08/21 04/08/21 04/08/21 10:35 10:35 11:35 WBC RBC Hgb Hct MCV MCH MCHC RDW Plt Count Neut % (Auto) Lymph % (Auto) [place] % (Auto) Eos % (Auto) Baso % (Auto) Neut # (Auto) Lymph # (Auto) [place] # (Auto) Eos # (Auto) Baso # (Auto) PT INR Fibrinogen D-Dimer 783 H ABG pH ABG pCO2 ABG pO2 ABG HCO3 ABG Total CO2 ABG O2 Saturation ABG Base Excess FiO2 Sodium Potassium Chloride Carbon Dioxide BUN Creatinine Estimated GFR BUN/Creatinine Ratio Glucose Lactate Calcium Ferritin Total Bilirubin AST ALT Alkaline Phosphatase Lactate Dehydrogenase Total Creatine Kinase CK-MB (CK-2) CK-MB (CK-2) Rel Index Troponin I C-Reactive Protein NT-Pro-B Natriuret Pep Total Protein Albumin Globulin Albumin/Globulin Ratio Procalcitonin Nasal Screen MRSA (PCR) SARS-CoV-2 (PCR) Positive H Influenza A (RT-PCR) Flu a negative Influenza B (RT-PCR) Flu b negative 04/08/21 04/08/21 04/09/21 11:43 15:00 05:30 WBC 13.7 H RBC 3.99 L Hgb 11.8 L Hct 34.7 L MCV 87.0 MCH 29.5 MCHC 33.9 RDW 13.7 Plt Count 260 Neut % (Auto) 81.8 H Lymph % (Auto) 11.3 L [place] % (Auto) 6.5 Eos % (Auto) 0.0 L Baso % (Auto) 0.4 Neut # (Auto) 18746 H Lymph # (Auto) 1500 [place] # (Auto) 900 Eos # (Auto) 0 Baso # (Auto) 100 PT INR Fibrinogen D-Dimer ABG pH 7.50 H ABG pCO2 27.7 L ABG pO2 60 L ABG HCO3 22 ABG Total CO2 22 ABG O2 Saturation 93 L ABG Base Excess -2.0 FiO2 80 Sodium Potassium Chloride Carbon Dioxide BUN Creatinine Estimated GFR BUN/Creatinine Ratio Glucose Lactate Calcium Ferritin Total Bilirubin AST ALT Alkaline Phosphatase Lactate Dehydrogenase Total Creatine Kinase CK-MB (CK-2) CK-MB (CK-2) Rel Index Troponin I C-Reactive Protein NT-Pro-B Natriuret Pep Total Protein Albumin Globulin Albumin/Globulin Ratio Procalcitonin Nasal Screen MRSA (PCR) Negative for mrsa SARS-CoV-2 (PCR) Influenza A (RT-PCR) Influenza B (RT-PCR) 04/09/21 04/09/21 05:30 05:30 WBC RBC Hgb Hct MCV MCH MCHC RDW Plt Count Neut % (Auto) Lymph % (Auto) [place] % (Auto) Eos % (Auto) Baso % (Auto) Neut # (Auto) Lymph # (Auto) [place] # (Auto) Eos # (Auto) Baso # (Auto) PT 14.4 H INR 1.3 Fibrinogen 514 H D-Dimer 1426 H ABG pH ABG pCO2 ABG pO2 ABG HCO3 ABG Total CO2 ABG O2 Saturation ABG Base Excess FiO2 Sodium 132 L Potassium 3.8 Chloride 105 Carbon Dioxide 23 BUN 25 H Creatinine 0.64 Estimated GFR > 60.0 BUN/Creatinine Ratio 39.1 H Glucose 177 H Lactate Calcium 8.3 L Ferritin Total Bilirubin 0.3 AST 66 H ALT 33 Alkaline Phosphatase 76 Lactate Dehydrogenase 1224 H Total Creatine Kinase 59 CK-MB (CK-2) CK-MB (CK-2) Rel Index Troponin I C-Reactive Protein 19.8 H NT-Pro-B Natriuret Pep Total Protein 6.5 Albumin 3.0 L Globulin 3.5 Albumin/Globulin Ratio 0.9 L Procalcitonin Nasal Screen MRSA (PCR) SARS-CoV-2 (PCR) Influenza A (RT-PCR) Influenza B (RT-PCR) [facility] Medical History (Updated 04/08/21 @ 10:57 by Sabi Roberts DO) Hypertension Social History Smoking Status: Never smoker Assessment & Plan Assessment & Plan narrative: 1. COVID pneumonia with acute hypoxemic respiratory failure, new Plan: High-flow oxygen/BIPAP as needed. Patient is on the edge of needing intubation, if that occurs, will attempt transfer to regional facility, setting that up now. Realistically, it may be unlikely that we will be able to achieve transfer and if patient needs to be intubated, will manage her locally but will be unable to keep her prone. Will continue dexamethasone 6 mg p.o. q.day and remdesivir 100 mg IV qd. Plan will be to continue remdesivir x 4 days and up to 9 days if not clinically improving. Continue baricitinib 4 mg PO qd x 10 days or until discharge. Will continue with supportive therapy including Tylenol, Combivent MDI, and proning. Goal will be for at least 6-8 hours of prone positioning daily. Goal maintenance oxygenation will be > 90%. RT consulting. 2. Possible secondary bacterial community acquired pneumonia based on elevated procalcitonin Plan: Continue Rocephin and azithromycin daily. 3. Non insulin-dependent diabetes mellitus type 2, chronic Plan: Diabetic diet. 4. Hypertension, chronic Plan: Continue home felodipine ER 5 mg PO qd. 5. Hyperlipidemia, chronic Plan: Continue atorvastatin 40 mg p.o. q.h.s. 6. Hypothyroidism, chronic Plan: Continue levothyroxine 137 micro g p.o. q.a.m. 7. Asthma, mild, intermittent Plan: Patient normally has an albuterol inhaler, will switch to combivent MDI in the hospital due to respiratory distress. Dexamethasone as mentioned above. 8. Osteopenia, chronic Plan: Holding alendronate and calcium. 9. Obesity, chronic Plan: Patient is at increased risk for poor healing due to deconditioning, plan as above. PT/OT, nutrition consult after patient clinically improves. DVT prophylaxis: Lovenox FEN: TKO, diabetic diet COVID: Positive Code: Full Disposition: Anticipate four nights, possibly longer. Quality VTE Deep Vein Thrombosis/Pulmonary Embolism Present on Admission: No
[2021-04-09] MEDS: LEVOTHYROXINE 137 MCG TABLET PO (08:43)
[2021-04-09] MEDS: ATORVASTATIN 20 MG TABLET 40 MG PO (08:43)
[2021-04-09] MEDS: BARICITINIB 2 MG TABLET 4 MG PO (08:43)
[2021-04-09] MEDS: DEXAMETHASONE 10 MG/ML VIAL 6 MG IV (08:43)
--- NOTE | 2021-04-09 09:51 | PC.NURSE ---
Addendum entered by Cecile Young R.N. 04/09/21 13:06: 1300-Pt has been able to tolerating reducing 02 on HHFNC, down to 50L and 75% while proning or side sleeping. Pt transitioned to Left sided prone,when back on the heated high flow @ 95% 60L Tolerating, she is sleeping. Original Note: AM shift Pt is on heated highflow this AM with 90% Fio02 and 40 L. Spo2 is 87-90, Pt is more anxious this am, requesting to eat. Meal set up for for patient, when position shifted to sitting up right, Pt Spo2 down to 79%. Minimal intake as Pt needing to get back onto side in order to get Spo2 up. CPAP started when RT into assess Pt. Dr Shaver contacted for Ativan order as Pt states I am suffocating with this mask Ativan given, and Pt is able to tolerate side laying and CPAP in place. 100% Fio2 and rate 12. Spo2 has increased to 94% at present and Pt appears comfortable.
[2021-04-09] MEDS: REMDESIVIR 100 MG in SODIUM CHLORIDE 0.9% 230 ML 250 ML IV (11:04)
[2021-04-09] MEDS: SODIUM CHLORIDE 0.9% 500 ML 1000 ML IV (11:05)
[2021-04-09] MEDS: ENOXAPARIN 80 MG/0.8 ML SYRINGE SUBCUT (11:05)
[2021-04-09] MEDS: LORazepam 2 MG/ML INJ (11:30)
[2021-04-09] MEDS: ACETAMINOPHEN 325 MG TABLET 650 MG PO (14:15)
[2021-04-09] MEDS: CYCLOBENZAPRINE 10 MG TABLET PO (14:15)
--- NOTE | 2021-04-09 15:05 | CM.DANOTE ---
Addendum entered by Shasta Vela LPN 04/09/21 15:28: Spoke now by phone with pt's Luther: [phone]. Introduced self and role. Luther sounded a bit tearful during the conversation. He stated that he, too, had tested + for COVID and was quarantining at home. He confirmed that his is functionally independent at baseline. He says they care for great-grandchildren daily and that we won't be doing that anymore for a long time. Asked about any support available to assist when pt is able to d/c home. He says his daughter Lauren Irizarry no longer lives in [place]. She and her have moved to [place]. He says they have a friend who used to work in the medical field and will be available to help out when his is finally able to go home. Assured him that the DCP team will be following to assist as POC proceeds. Provided him with the direct confidential line to the CM/DCP desk. He expressed thankfulness for the assist and conversation. Original Note: Discharge Planning/Care Management DCP: assessment: case received, EMR reviewed. Discussed in Team Rounds and then later this afternoon with Dr. Shaver. Pt is a 75 year old female who admitted yesterday to care of her PCP: Dr. Shaver. Admitted for COVID + pneumonia/respiratory failure. VAX status: unvaccinated. Payer: Medicare and [employer]. Admission status: INPT: confirmed by UR RN. Dr. Shaver stated that pt has come very close to needed intubation and has worked with RN coodinator Jayshree Wolf on transfer options. She says she is aware that these are very limited and will try to manage pt without ventilator support as long as possible. She is considering discussing case with hospitalist team. Pt is currently on heated high flow oxygen. As pt shows improvement Dr. Shaver plans for PT/OT and Gas Leak Inspector Helper consult. DCP team will be reaching out to patient by phone and to her family when discussion of d/c dispo options is appropriate. CM Discharge Assessment Start: 04/09/21 15:04 Freq: Status: Active Protocol: Document 04/09/21 15:04 ITV (Rec: 04/09/21 15:05 ITV [id number]) Discharge Planning Assessment Advance Directives? No History Provided By Patient,Medical Record Prior Living Arrangements House Is patient alert and oriented? Yes
[2021-04-09] MEDS: AZITHROMYCIN 500 MG in DEXTROSE 5% IN WATER 250 ML IV (15:10)
[2021-04-09] MEDS: cefTRIAXone 2,000 MG in SODIUM CHLORIDE 0.9% 100 ML 200 ML IV (15:54)
[2021-04-09] MEDS: LORazepam 1 MG TABLET PO ×2 (15:56→22:14)
--- NOTE | 2021-04-09 22:48 | PC.NURSE ---
Patient is A/Ox4, drowsy, only complains of positional discomfort. Side lying for 2-3hrs prior to dinner while on CPAP 65%. HHF 55L 90% for dinner, and then back on CPAP 70% until 2200. Now of HHF, 55L 90%. Patient's spO2 low 90's on CPAP and 86-88% on HHF. Patient received 1mg Ativan PO twice during shift to help with wearing CPAP for multiple hours. Patient encouraged to prone or side-lie while sleeping.
[2021-04-10] VITALS (27 sets, daily range): BP systolic 105–146; BP diastolic 51–87; PULSE 63–88; RESP 18–38; TEMP 29.9–36.6; O2SAT 83–100
[2021-04-10] MEDS: LEVOTHYROXINE 137 MCG TABLET PO (05:00)
[2021-04-10 05:03] LABS: Add Manual Diff / Slide Review NO; Basophils Absolute Auto 100 /uL (0-100); Basophils Percent Auto 0.4 % (0-2); Eosinophils Absolute Auto 0 /uL (0-450); Hemoglobin 11.7 g/dL (12.0-16.0); Lymphocytes Absolute Auto 1500 /uL (1100-4500); Lymphocytes Percent Auto 8.2 % (25-40); Mean Corpuscular HGB Conc 33.3 % (30-36); Mean Corpuscular Hemoglobin 29.2 PG (26-34); Mean Corpuscular Volume 87.9 fL (80-100); Monocytes Absolute Auto 1200 /uL (0-900); Monocytes Percent Auto 6.5 % (3-14); Neutrophils Absolute Auto 15600 /uL (1500-7000); Neutrophils Percent Auto 84.9 % (50-75); Platelet Count 320 X10^3/uL (150-400); Red Blood Cell Count 3.99 X10^6/uL (4.0-5.2); White Blood Cell Count 18.3 X10^3/uL (4.5-11.0)
[2021-04-10 05:16] LABS: INR 1.3 (0.9-1.3); Prothrombin Time 14.6 SECONDS (10.1-12.7)
[2021-04-10 05:19] LABS: Alanine Aminotransferase 40 IU/L (<35); Albumin 2.9 g/dL (3.5-5.0); Albumin Globulin Ratio 0.8 (1.0-2.8); Alkaline Phosphatase 75 U/L (38-126); Aspartate Aminotransferase 66 IU/L (14-36); Bilirubin Total 0.2 mg/dL (0.2-1.3); Blood Urea Nitrogen 30 mg/dL (7-17); Calcium 8.7 mg/dL (8.4-10.2); Carbon Dioxide 23 mmol/L (22-32); Chloride 106 mmol/L (98-107); Creatine Kinase 23 U/L (30-135); D Dimer 821 ng/mL (<230); Estimated Glomerular Filt Rate > 60.0 mL/min (>60); Fibrinogen 433 mg/dL (211-428); Globulin 3.6 g/dL (1.7-4.1); Glucose 234 mg/dL (80-110); HEMOLYSIS < 15 (0-50); Lactate Dehydrogenase 1198 U/L (313-618); Sodium 135 mmol/L (137-145); Total Protein 6.5 g/dL (6.3-8.2)
[2021-04-10 05:30] LABS: C-Reactive Protein Quant 13.2 mg/dL (<1.0)
[2021-04-10] MEDS: ALBUTEROL/IPRATROPIUM 3 ML AMPUL INH ×2 (07:14→20:03)
[2021-04-10] MEDS: LORazepam 1 MG TABLET PO ×2 (07:56→19:42)
[2021-04-10] MEDS: ATORVASTATIN 20 MG TABLET 40 MG PO (07:56)
[2021-04-10] MEDS: DEXAMETHASONE 10 MG/ML VIAL 6 MG IV (07:57)
[2021-04-10] MEDS: BARICITINIB 2 MG TABLET 4 MG PO (07:58)
[2021-04-10] MEDS: ENOXAPARIN 80 MG/0.8 ML SYRINGE SUBCUT (08:02)
--- NOTE | 2021-04-10 08:48 | PM.PN.1 ---
Subjective Subjective Date Patient Seen: 04/10/21 Time Patient Seen: 08:48 Interval history: Met with patient and reviewed chart. Patient is a 75-year-old female with a history of hyperlipidemia, hypertension, osteoporosis, obesity, hypothyroidism and diet-controlled diabetes who is underactive needed and currently suffering from COVID-19 respiratory illness. This is hospital day 3. For this patient and she has continued to be critical with high levels of oxygen requirement that is very sensitive to any movement lying on her back or eating and then patient takes quite some time to recover. Patient complains that she hurts all over. She does not have any specific pain or localizing pain. Exam Vital Signs (past 8 hours): - 04/10/21 04:00 04/10/21 05:35 04/10/21 08:00 Temperature 97.5 F L Pulse Rate 67 88 Respiratory Rate 28 H 28 H Blood Pressure 109/63 109/63 129/59 L Pulse Oximetry 93 91 Fraction of Inspired Oxygen 90 Oxygen Delivery Method CPAP Oxygen Flow Rate 45 Narrative Exam Narrative: Patient is alert and answers questions although slowly and appears fatigued. HEENT: Unremarkable no mucosal lesions Neck: Supple without adenopathy Chest: Decreased breath sounds bilateral bases Cor: Regular rate and rhythm with distant S1-S2 Abdomen: Positive bowel sounds, obese, soft, nontender, nondistended Extremities: Show no rashes. No edema. Pulses are intact Objective Labs Result Diagrams: 04/10/21 04:45 04/10/21 04:45 Labs: Laboratory Results - last 24 hr 04/10/21 04/10/21 04/10/21 04:45 04:45 04:45 WBC 18.3 H RBC 3.99 L Hgb 11.7 L Hct 35.0 L MCV 87.9 MCH 29.2 MCHC 33.3 RDW 14.0 Plt Count 320 Neut % (Auto) 84.9 H Lymph % (Auto) 8.2 L [place] % (Auto) 6.5 Eos % (Auto) 0.0 L Baso % (Auto) 0.4 Neut # (Auto) 16044 H Lymph # (Auto) 1500 [place]son # (Auto) 1200 H Eos # (Auto) 0 Baso # (Auto) 100 PT 14.6 H INR 1.3 Fibrinogen 433 H D-Dimer 821 H Sodium 135 L Potassium 4.0 Chloride 106 Carbon Dioxide 23 BUN 30 H Creatinine 0.77 Estimated GFR > 60.0 BUN/Creatinine Ratio 39.0 H Glucose 234 H Calcium 8.7 Total Bilirubin 0.2 AST 66 H ALT 40 H Alkaline Phosphatase 75 Lactate Dehydrogenase 1198 H Total Creatine Kinase 23 L C-Reactive Protein 13.2 H Total Protein 6.5 Albumin 2.9 L Globulin 3.6 Albumin/Globulin Ratio 0.8 L [facility] Medical History (Updated 04/08/21 @ 10:57 by Sabi Roberts DO) Hypertension Social History Smoking Status: Never smoker Assessment & Plan Assessment & Plan narrative: A total of 75 minutes is spent with the patient throughout the day. Met with patient in 2 separate occasions and discussed with respiratory therapy, nursing, hospitalist. 75-year-old female with acute respiratory failure with hypoxemia secondary to COVID-19 illness Plan: Will continue with current treatment with remdesivir, dexamethasone and Baricitimib. Actrema was ordered but was not given because we do not have available in our pharmacy. We will continue with supplemental oxygen to keep her saturations in the high 80s or greater Continue with RT Patient is strongly encouraged to maintain a prone position despite the discomfort and to continue to keep her oxygen in place. She had her oxygen off for several minutes where her oxygen was discontinued today and her oxygen went down into the 70s and took over 30 minutes for recovery. We discuss intubation and likelihood of doing poorly if she did require intubation. Patient still desires to have this happen if it is a last resort. At this point based on her or tear a blood gas which showed pH is 7.4 and a pCO2 of 29 and a PO2 53 she does not meet criteria for intubation. She continues to be alert and currently on 60-70% oxygen is able to maintain saturations in the 90s if she does not move or talk on the phone or eat. Her mila score is 5.05 based on this blood gas. We will repeat this blood gas in the morning or sooner if indicated based on her clinical condition. Patient with elevated white blood cell count which is atypical for COVID-19 illness and patient is currently being treated with Rocephin and azithromycin. Her CRP came down from 22 to 13 and her D-dimer decreased from 1421-800. We will check a BNP in the morning. If this is elevated would have a low index of suspicion to do an echo. Patient is appropriately being treated with Lovenox as well for clot prevention. Patient is noncompliant and argumentative. She does not want to remain in a prone position. We will add guaifenesin as well to help with cough I attempted to discuss with COVID unit ICU with potential for pronating should we have to intubate patient in the next 24 hours and currently there are no beds available at [facility] in [place] or at [facility] or at . We will continue to monitor. Assessment 2. Type 2 diabetes usually diet controlled but elevated related to dexamethasone Plan: Will do medium dose sliding scale insulin Assessment 3. hypothyroidism Plan: continue with thyroid meds Assessment 4. HTN with lower normal bp Plan: continue to hold felodipine Quality VTE Deep Vein Thrombosis/Pulmonary Embolism Present on Admission: No
[2021-04-10] MEDS: REMDESIVIR 100 MG in SODIUM CHLORIDE 0.9% 230 ML 250 ML IV (09:37)
[2021-04-10] MEDS: SODIUM CHLORIDE 0.9% 250 ML 21 ML IV (09:50)
--- NOTE | 2021-04-10 10:13 | PC.NURSE ---
Addendum entered by Emily Fuchs R.N. 04/10/21 14:49: pt unable to maintain o2 sats on HHFNC 60L/100% WHILE PRONE - AGAIN TURNED TO LEFT SIDE AND PLACED BACK ON CPAP 15/90%, INFORMED PT AND HER MD THAT WE MAY BE LEANING TOWARD INTUBATION- MESSAGE LEFT WITH DR KHANNA TO CALL BACK TARYN- WILL UPDATE HOSPITALIST WELL Addendum entered by Emily Fuchs R.N. 04/10/21 13:34: update to doctor via telephone - received order for sliding scale coverage due to elevated glucose as well as po mucinex to aide in cough/expectoration Addendum entered by Emily Fuchs R.N. 04/10/21 12:04: changed pt position to the right side lying and she desats down to 70's% assisted to turn back to left side and promptly placed on cpap at 15 fio2 100% and presently she is 97% spo2 pt reports i'm miserable medicated with po flexeril, tylenol, and colace for lack of bm x several days- swallowed fine with h20- harsh cough continues Addendum entered by Emily Fuchs R.N. 04/10/21 11:17: able to wean pt down to 60L/65% fio2 while mostly prone/left side lying- spo2 89-93% Original Note: PT SEEMINGLY DOWN IN HER SPIRITS- STILL UNBELIEVING THAT HER BREATHING SITUATION COULD BE RELATED TO COVID + AND DOESN'T ENTIRELY BELIEVE THAT SHE IS COVID + : ALTHOUGH SPOUSE AT HOME IS COVID + WELL. SHE REMAINS NSR AND TOLERATED CPAP FROM MIDNIGHT UNTIL 0700- WHEN SHE WAS PLACED ON HHFNC AT 60L/90%fio2- strongly encouraged to prone and assisted her to that position which she remained from 0800 until 094o when she turned to left sidelying spo2 94-97 while in this this position- held am meal and given meds with h20- fabian patent.
[2021-04-10] MEDS: ACETAMINOPHEN 325 MG TABLET 650 MG PO (11:03)
[2021-04-10] MEDS: DOCUSATE 100 MG CAPSULE PO (11:03)
[2021-04-10] MEDS: CYCLOBENZAPRINE 10 MG TABLET PO (11:03)
[2021-04-10] MEDS: cefTRIAXone 2,000 MG in SODIUM CHLORIDE 0.9% 100 ML 200 ML IV (14:04)
[2021-04-10] MEDS: SODIUM CHLORIDE 0.9% FLUSH 10 ML IV ×2 (14:05→19:44)
[2021-04-10] MEDS: guaiFENesin ER 600 MG TAB PO ×2 (14:08→19:42)
[2021-04-10] MEDS: AZITHROMYCIN 500 MG in DEXTROSE 5% IN WATER 250 ML IV (14:40)
[2021-04-10] MEDS: INSULIN LISPRO 100 UNIT/ML 3ML VIAL SUBCUT ×2 (16:48→20:07)
[2021-04-10 17:36] LABS: HCO3 ABG 20 mmol/L (22-26); PCO2 ABG 29.5 mmHg (35-45); PO2 ABG 53 mmHg (80-100); pH ABG 7.43 (7.35-7.45)
[2021-04-10 17:37] LABS: Oxygen Saturation ABG 89 % (95-100); TCO2 ABG 21 mmol/L (21-31)
[2021-04-10 17:38] LABS: Fractionated Inspired Oxygen 65
[2021-04-10] MEDS: HYDROCODONE/ACET 5/325 TABLET 1 TAB PO (19:42)
[2021-04-11] VITALS (38 sets, daily range): BP systolic 116–137; BP diastolic 57–63; PULSE 70–126; RESP 3–41; TEMP 30.7–37.1; O2SAT 53–99
[2021-04-11] MEDS: HYDROCODONE/ACET 5/325 TABLET 1 TAB PO (04:47)
[2021-04-11] MEDS: SODIUM CHLORIDE 0.9% FLUSH 10 ML IV ×4 (04:48→20:50)
[2021-04-11] MEDS: LORazepam 1 MG TABLET PO (05:16)
[2021-04-11 05:39] LABS: Fractionated Inspired Oxygen 90; HCO3 ABG 21 mmol/L (22-26); Oxygen Saturation ABG 92 % (95-100); PCO2 ABG 32.1 mmHg (35-45); PO2 ABG 62 mmHg (80-100); TCO2 ABG 22 mmol/L (21-31)
[2021-04-11 05:40] LABS: pH ABG 7.42 (7.35-7.45)
[2021-04-11 05:47] LABS: Hematocrit 36.6 % (36-46); Hemoglobin 12.1 g/dL (12.0-16.0); Mean Corpuscular Hemoglobin 28.9 PG (26-34); Mean Corpuscular Volume 87.7 fL (80-100); Platelet Count 403 X10^3/uL (150-400); Red Blood Cell Count 4.17 X10^6/uL (4.0-5.2); Red Cell Distribution Width 14.4 % (11.6-14.8); White Blood Cell Count 19.6 X10^3/uL (4.5-11.0)
--- NOTE | 2021-04-11 05:48 | PC.NURSE ---
Addendum entered by Berkley Briggs R.N. 04/11/21 06:27: Patient is currently resting with C-pap of 100%, slightly turned to left side, SpO2 88-90%, RR 28-30s. Notified Dr Shore about previous episode and am labs: ABG results, WBC 19.6, D-dimer 1802, LDH 1583, CRP 7.7, BNP 1210, no new orders received at this time. She will make contact with a tertiary facility for possible intubation and transfer. Original Note: Green Jobs Trainer Note-Patient tolerated sleeping with C-pap of 90% throughout the night until 0500, requested it off RT obtained ABG while on C-pap, then patient was placed on HHF 60L/100% FIO2, she drank a full cup of water with PO Ativan and [place], started coughing, became tachypneic, RR 30s-40s, tachycardic 110-115, lips cyanotic, not able to speak in sentences, C-pap back on, slowly recovered to 88-92%, HOB has been elevated.
--- NOTE | 2021-04-11 05:51 | RT ---
Performed ABG on pt at 0515 while pt still on CPAP via V60 non-invasive vent. ABG results: pH 7.419, PaCO2 32.1, PaO2 62, HCO3 20.8, BE -4, SaO2 92%. Pt requested to take a break from CPAP. Placed pt on HHFNC at 60 LPM and 100% FiO2, pt did not tolerate. Pt's SpO2 decreased instantly to 83% and pt's lips started turning purple as well. Gave pt about 5 minutes to recover after coughing fit and pt's SpO2 dropped to 77% and RR 37-41. Placed pt back on CPAP, SpO2 increased to 90% and still increasing. Pt's WOB decreased as well, pt's RR now 33-35. Re-evaluate pt for intubation.
[2021-04-11 05:52] LABS: Add Manual Diff / Slide Review YES
[2021-04-11 05:53] LABS: Alanine Aminotransferase 43 IU/L (<35); Albumin Globulin Ratio 0.8 (1.0-2.8); Alkaline Phosphatase 79 U/L (38-126); Aspartate Aminotransferase 72 IU/L (14-36); BUN Creatinine Ratio 36.1 (6-22); Bilirubin Total 0.3 mg/dL (0.2-1.3); Blood Urea Nitrogen 26 mg/dL (7-17); C-Reactive Protein Quant 7.7 mg/dL (<1.0); Calcium 8.5 mg/dL (8.4-10.2); Carbon Dioxide 24 mmol/L (22-32); Chloride 108 mmol/L (98-107); Creatine Kinase 22 U/L (30-135); Estimated Glomerular Filt Rate > 60.0 mL/min (>60); Globulin 3.7 g/dL (1.7-4.1); Glucose 140 mg/dL (80-110); HEMOLYSIS < 15 (0-50); Lactate Dehydrogenase 1583 U/L (313-618); Potassium 4.1 mmol/L (3.4-5.1); Sodium 137 mmol/L (137-145); Total Protein 6.7 g/dL (6.3-8.2)
[2021-04-11 05:58] LABS: Fibrinogen 426 mg/dL (211-428); INR 1.3 (0.9-1.3); Prothrombin Time 14.8 SECONDS (10.1-12.7)
[2021-04-11 05:59] LABS: NT-proBNP (BNP-Adult 18+) 1210 pg/mL (<450)
[2021-04-11 06:07] LABS: D Dimer 1802 ng/mL (<230)
[2021-04-11 06:37] LABS: Neutrophils Absolute Manual 16856 /uL (3000-5900); RBC Morphology Normal Morphology; Total Cells Counted 100
--- NOTE | 2021-04-11 07:22 | PM.PN.1 ---
Subjective Subjective Date Patient Seen: 04/11/21 Time Patient Seen: 07:22 Interval history: Patient has significantly decompensated in the last 24 hours. She is on maximum support via BiPAP and cannot tolerate even a few seconds off of the mask to eat or speak. Severe work of breathing. Reports this morning that ?I am going to . ? Denies that she wants to be intubated. Exam Vital Signs (past 8 hours): - 04/10/21 23:35 04/11/21 04:05 Temperature 97.3 F L 97.2 F L Pulse Rate 75 85 Respiratory Rate 30 H 25 H Blood Pressure 109/59 L 116/63 Pulse Oximetry 95 96 Fraction of Inspired Oxygen 100 Oxygen Delivery Method CPAP Oxygen Flow Rate 60 Narrative Exam Narrative: GENERAL: Somnolent, only able to speak in short, clipped sentences, eyes closed, working hard to breath, on BIPIAP, severe respiratory distress. HEENT: Head normocephalic/atraumatic. LUNGS: Poor inspiratory effort with loud inspiratory and expiratory wheezes heard throughout, crackles at the bases. CV: Normal S1 and S2 with regular rate and rhythm, no audible murmurs, rubs or gallops. ABDOMEN: Soft, non-tender, non-distended, no organomegaly. Hypoactive bowel sounds. EXTREMITIES: No clubbing, cyanosis, or edema. NEURO: Cranial nerves II through XII grossly intact, no focal deficits. PSYCH: Alert and oriented x 3. SKIN: No concerning lesions. Objective Labs Result Diagrams: 04/11/21 05:00 04/11/21 05:00 Labs: Laboratory Results - last 24 hr 04/10/21 04/11/21 04/11/21 16:58 05:00 05:00 WBC 19.6 H RBC 4.17 Hgb 12.1 Hct 36.6 MCV 87.7 MCH 28.9 MCHC 33.0 RDW 14.4 Plt Count 403 H Neut % (Auto) Not Reportable Lymph % (Auto) Not Reportable [place] % (Auto) Not Reportable Eos % (Auto) Not Reportable Baso % (Auto) Not Reportable Lymph # (Auto) Not Reportable [place] # (Auto) Not Reportable Baso # (Auto) Not Reportable Total Counted 100 Seg Neutrophils % 85.0 H Band Neutrophils % 1.0 L Lymphocytes % (Manual) 11.0 L Monocytes % (Manual) 3.0 Neutrophils # (Manual) 98658 H RBC Morphology Normal morphology PT 14.8 H INR 1.3 Fibrinogen 426 D-Dimer 1802 H ABG pH 7.43 ABG pCO2 29.5 L ABG pO2 53 L ABG HCO3 20 L ABG Total CO2 21 ABG O2 Saturation 89 L ABG Base Excess -5.0 L FiO2 65 Sodium Potassium Chloride Carbon Dioxide BUN Creatinine Estimated GFR BUN/Creatinine Ratio Glucose Calcium Total Bilirubin AST ALT Alkaline Phosphatase Lactate Dehydrogenase Total Creatine Kinase C-Reactive Protein NT-Pro-B Natriuret Pep Total Protein Albumin Globulin Albumin/Globulin Ratio 04/11/21 04/11/21 04/11/21 05:00 05:00 05:15 WBC RBC Hgb Hct MCV MCH MCHC RDW Plt Count Neut % (Auto) Lymph % (Auto) [place] % (Auto) Eos % (Auto) Baso % (Auto) Lymph # (Auto) [place] # (Auto) Baso # (Auto) Total Counted Seg Neutrophils % Band Neutrophils % Lymphocytes % (Manual) Monocytes % (Manual) Neutrophils # (Manual) RBC Morphology PT INR Fibrinogen D-Dimer ABG pH 7.42 ABG pCO2 32.1 L ABG pO2 62 L ABG HCO3 21 L ABG Total CO2 22 ABG O2 Saturation 92 L ABG Base Excess -4.0 L FiO2 90 Sodium 137 Potassium 4.1 Chloride 108 H Carbon Dioxide 24 BUN 26 H Creatinine 0.72 Estimated GFR > 60.0 BUN/Creatinine Ratio 36.1 H Glucose 140 H Calcium 8.5 Total Bilirubin 0.3 AST 72 H ALT 43 H Alkaline Phosphatase 79 Lactate Dehydrogenase 1583 H Total Creatine Kinase 22 L C-Reactive Protein 7.7 H NT-Pro-B Natriuret Pep 1210 H Total Protein 6.7 Albumin 3.0 L Globulin 3.7 Albumin/Globulin Ratio 0.8 L ON LICENSE OF [facility] Medical History (Updated 04/08/21 @ 10:57 by Sabi Roberts DO) Hypertension Social History Smoking Status: Never smoker Assessment & Plan Assessment & Plan narrative: 1. COVID pneumonia with acute hypoxemic respiratory failure, worsening Plan: called and appraised of the situation. He also has COVID and is sick at home. He was informed that she is acutely decompensating and that her prognosis is poor. Discussed options including intubation and transfer, intubation and ongoing care, ongoing BiPAP, versus comfort care. Discussed that due to the pandemic, a transfer may not be possible. If she chooses intubation and we cannot transfer her, informed patient and her that we would be unable to prone her due to our equipment. Discussed that this would be sub standard management of an intubated COVID patient and may prolong her suffering and . Also discussed the option of continuing BiPAP which she is currently on, but which is not likely to continue to adequately support her level of severe respiratory distress. Ongoing BIPAP also carries with it the risk of prolonging her suffering. Anticipate that if she were taken off of respiratory support, she would not be able to support her own breathing for more than a few minutes to hours. then transferred via phone to patient in which she was unable to gasp any more than a few words. After that conversation, talked with again and reviewed patient's very poor prognosis again. He stated that he did not want her to continue to suffer and that he wanted her to be comfortable. declined intubation. Asked if he wanted to talk with his again and he said no, because he didn't want her to be taken off of her mask again as he heard how much work it was for her and how she desatted quickly down into the 70s while talking to him. Asked that I pass along to her that he loved her and I did do that. Sat with patient for a while and held her hand and let her know that her family loves her and that they are all holding her in their hearts. Unfortunately since they also have COVID, they are unable to be at her bedside. Discussed again with Galina what she wanted to do and she reiiterated that she didn't want to be intubated. Care was then coordinated with nursing team for comfort care. Will standby and support with all available comfort cares. Will attempt to have family present electronically via video-call if possible during this process. Greater than 1 hour and 15 minutes minutes was spent in physician prolonged services from 8:00 to 9:15 am. This included evaluating the status of the patient, communicating with the patient and family, and directing the team attending the patient. Quality VTE Deep Vein Thrombosis/Pulmonary Embolism Present on Admission: No
[2021-04-11] MEDS: DEXAMETHASONE 10 MG/ML VIAL 6 MG IV (07:49)
[2021-04-11] MEDS: FUROSEMIDE 40 MG/4 ML VIAL IV (07:49)
[2021-04-11] MEDS: MORPHINE 2 MG/ML INJ IV ×7 (09:13→20:48)
[2021-04-11] MEDS: LORazepam 2 MG/ML INJ 1 MG IV ×6 (09:13→15:40)
[2021-04-11] MEDS: SCOPOLAMINE 1 PATCH TOP (09:19)
[2021-04-11] MEDS: MORPHINE 4 MG/ML INJ (09:20)
[2021-04-11] MEDS: HALOPERIDOL 5 MG/ML VIAL 2 MG IV ×4 (10:00→15:40)
--- NOTE | 2021-04-11 10:47 | PC.NURSE ---
Addendum entered by Emily Fuchs R.N. 04/11/21 18:53: PT'S SPOUSE, WANDA TO SPEAK WITH PT. HE STATED THAT WHEN SHE PASSES HE WOULD LIKE HER TO GO TO [facility] IN [place] Addendum entered by Emily Fuchs R.N. 04/11/21 15:11: received order from dr stevens forms gtt- pt continues to moan upon each exhalation- awaiting preparation by pharmacy Addendum entered by Emily Fuchs R.N. 04/11/21 13:31: PT REMAINS UNRESPONSIVE OTHER THAN OCC MOANING- UPDATE TO FAMILY AND TURNED Q 2 HOURS WELL MEDICATING FOR PAIN/DYSPNEA Original Note: PT MADE COMFORT CARE AFTER LONG DISCUSSION INCLUDING DR. STEVENS, PT, MYSELF, PT'S SPOUSE- WANDA. PT WAS MAXED OUT ON OXYGEN 100% CPAP-15, SHE SPOKE TO SPOUSE ON TELEPHONE WELL HER DAUGHTER.- MEDICATED INTERMITTENTLY WITH IV MS/LORAZ/HALDOL FOR HER CONTINUED MOANING WITH EACH EXHALATION- TURNED AND BATHED. PLACED ON HFNC AT 15L THEN TURNED DOWN TO 10L FOR COMFORT. HEART RATE IS 115 TACHYCARDIC SINUS IN NATURE-
[2021-04-11] MEDS: MORPHINE 50 MG in DEXTROSE 5 % IN WATER 45 ML 5 ML IV (16:10)
[2021-04-11] MEDS: SODIUM CHLORIDE 0.9% 250 ML 21 ML IV (16:17)
[2021-04-12] VITALS (9 sets, daily range): BP systolic 102; BP diastolic 55; PULSE 90–97; RESP 6–8; O2SAT 78–87; BMI 37.6
[2021-04-12] MEDS: MORPHINE 50 MG in DEXTROSE 5 % IN WATER 45 ML IV (01:30)
--- NOTE | 2021-04-12 09:02 | P.PN_ITS ---
Subjective Subjective Date Patient Seen: 04/12/21 Time Patient Seen: 09:02 Interval history: Patient was gasping for breath and moaning yesterday, so morphine drip was started and nursing reports that patient was comfortable overnight. She has been taking about 6-7 breaths per minute. Her heart rate was tachycardic during the day yesterday, but fell into the 90s overnight. Her oxygen saturation has remained low between 70-80%. She was started on 2 L per nasal cannula overnight. She has made very little urine. Exam Vital Signs (past 8 hours): - 04/12/21 01:37 04/12/21 02:00 04/12/21 03:00 Pulse Rate 94 H 93 H 92 H Respiratory Rate 7 L 7 L 6 L Pulse Oximetry 86 L 85 L 86 L 04/12/21 04:00 04/12/21 05:00 04/12/21 06:00 Pulse Rate 91 H 92 H 91 H Respiratory Rate 8 L 6 L 7 L Pulse Oximetry 84 L 78 L 79 L Fraction of Inspired Oxygen 100 Oxygen Delivery Method CPAP Oxygen Flow Rate 2 Narrative Exam Narrative: GENERAL: Sedated. HEENT: Head normocephalic/atraumatic. LUNGS: Very shallow breaths with loud inspiratory and expiratory wheezes heard throughout, crackles at the bases. CV: Normal S1 and S2 with regular rate and rhythm, no audible murmurs, rubs or gallops. ABDOMEN: Soft, non-tender, non-distended, no organomegaly. Hypoactive bowel sounds. EXTREMITIES: PICC line, RUE, infiltrated. NEURO: Cranial nerves II through XII grossly intact, no focal deficits. PSYCH: Alert and oriented x 3. SKIN: No concerning lesions. Objective Labs Result Diagrams: 04/11/21 05:00 04/11/21 05:00 [facility] Medical History (Updated 04/08/21 @ 10:57 by Sabi Roberts DO) Hypertension Social History Smoking Status: Never smoker Assessment & Plan Assessment & Plan narrative: 1. COVID pneumonia with acute hypoxemic respiratory failure Plan: Patient is sedated and not in pain. Oxygenation and heart rate el ewhat improved overnight but patient's status is still critical. called and appraised of the situation. Discussed continuing present management versus trial of reduced morphine to see if patient might be able to rally. wanted to try the latter. Karely drip shut off after morning rounds. Shortly thereafter, patient became asystolic and apneic and peacefully at 10:30 am. updated by nursing and myself. home updated per nursing. Quality VTE Deep Vein Thrombosis/Pulmonary Embolism Present on Admission: No
[2021-04-12] MEDS: MORPHINE 2 MG/ML INJ IV (10:27)
[2021-04-12] MEDS: LORazepam 2 MG/ML INJ 1 MG IV (10:28)
[2021-04-12] MEDS: HALOPERIDOL 5 MG/ML VIAL 2 MG IV (10:28)
--- NOTE | 2021-04-12 11:01 | PC.NURSE ---
PT BECAME ASYSTOLIC AND APNEIC AT 1030 FOLLOWING BRIEF MOMENT OF TACHYCARDIA FOLLOWED BY EXTREME BRADYCARDIA TO ASYSTOLE- UPDATE TO MUÑOZ, SPOUSE AND MESSAGE LEFT FOR DR CHAU - BODY WILL BE RELEASED TO [facility] AND THEY HAVE BEEN CONTACTED
--- NOTE | 2021-04-12 13:16 | CM.DPC ---
DCP . Per RN, pt this morning from COVID complications and spouse was informed and home notified for body to be released to. ARELY Lopez
--- NOTE | 2021-04-12 18:58 | PM.DDS.1 ---
Discharge Summary History of Illness Narrative: This 75-year-old female presents from the ED with COVID pneumonia. She is unvaccinated against COVID. Reports that she has been having dyspnea with cough and with any exertion for approximately 1 week. Has been feeling generally unwell. Reported 1 fever. No change in appetite. No nausea or vomiting. No diarrhea or constipation. Denies swelling. Her daughter was recently visiting from [place], she also had COVID as does her . 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 Vital signs upon admission to the ED included a temperature of 98.9?, pulse 93, respirations 26, O2 saturation 83%, blood pressure 130/69. Patient was started on high-flow oxygen at 40 liters/minute and O2 saturation improved to 90%. She was given a normal saline bolus, dexamethasone 6 mg IV x1, remdesivir 20 mg IV x1 and Rocephin and azithromycin secondary to elevated procalcitonin. Other abnormal lab values included a markedly elevated ferritin at 885, LDH at 1079, and CRP at 22.6. WBC elevated at 12.9 with a left shift. AST 58, BUN 19. Sodium slightly low at 132. Chest x-ray classic for COVID with multifocal interstitial infiltrates and mild to moderate cardiomegaly. Hospital Course Date of Admission: 04/08/21 12:51 Date of : 04/12/21 Primary care provider: Elin Shaver MD Consults: 04/08/21 15:13 Consult to Dietitian, Adult Routine Comment: Reason For Exam: triggered by admit 04/08/21 17:36 Consult to Respiratory Therapy Evaluate & Treat Comment: Physician Instructions: Evaluate and treat 04/08/21 21:59 Consult to Respiratory Therapy Evaluate & Treat Comment: Physician Instructions: Evaluate and treat 04/09/21 02:05 Consult to Respiratory Therapy Evaluate & Treat Comment: Physician Instructions: Evaluate and treat 04/11/21 08:54 Consult to Discharge Planning Routine Comment: Consult to Hospice Referral Urgent Comment: Discharge provider: Elni Shaver MD Discharge Diagnosis: 1 . Sudden cardiac arrest 2. Acute hypoxic respiratory failure 3. COVID pnemonia, acute 4. Possible secondary bacterial community acquired pneumonia based on elevated procalcitonin 5. Non insulin-dependent diabetes mellitus type 2, chronic 6. Hypertension, chronic 7. Hyperlipidemia, chronic 8. Hypothyroidism, chronic 9. Asthma, mild, intermittent, chronic 10. Osteopenia, chronic 11. Obesity, chronic Hospital Course: Patient was admitted and initially placed on high-flow oxygen, dexamethasone, remdesivir, baractinib and antibiotics for coverage of presumed secondary bacterial pneumonia in addition to her COVID pneumonia. Over the next three days, she steadily and quickly deteriorated and required BiPAP with no improvement. Discussion regarding intubation versus comfort care was had with patient and her and they decided to proceed to comfort care. She peacefully on the morning of 04/12/21 at 10:30 am. Objective Labs Result Diagrams: 04/11/21 05:00 04/11/21 05:00
== END 2021-04-12 10:30 | disposition expired | DRG 177 ==
LOC: ED 12:39 → AC 12:52 → ICU 12:54
PROVIDERS: Family Medicine; Admitting Provider Student in an Organized Health Care Education/Training Program; Emergency Provider Emergency Medicine; PCP Student in an Organized Health Care Education/Training Program; Referring Provider Emergency Medicine; Visit Provider Student in an Organized Health Care Education/Training Program
DX: U07.1 COVID-19 (principal); J12.82 Pneumonia due to coronavirus disease 2019; J96.01 Acute respiratory failure with hypoxia; J15.9 Unspecified bacterial pneumonia; I10 Essential (primary) hypertension; E78.5 Hyperlipidemia, unspecified; E03.9 Hypothyroidism, unspecified; J45.20 Mild intermittent asthma, uncomplicated; E66.9 Obesity, unspecified; E11.9 Type 2 diabetes mellitus without complications; M85.80 Other specified disorders of bone density and structure, unspecified site; Z68.37 Body mass index [BMI] 37.0-37.9, adult; Z91.19 Patient's noncompliance with other medical treatment and regimen; Z51.5 Encounter for palliative care
CPT/HCPCS: 36415; 36569; 36592; 36600; 71045; 80053; 82550; 82728; 82805; 82962; 83605; 83615; 83880; 84145; 84484; 85007; 85025; 85379; 85384; 85610; 86140; 87040; 87502; 87635; 87797; 93005; 93010; 94640; 94660; 96361; 96365; 96367; 96375; 99284; 99291; C9803; J0696; J1100; J1630; J1642; J1650; J1815; J1940; J2060; J2270; J3480